=== PATIENT | female | born 1935 | race African-American/Black ===

== ENCOUNTER 2021-01-31 15:25 | Emergency (ER) | payer OTHER ==
[~2021-01-31] VITALS: Ht 162.6 cm; Wt 70.0 kg
[2021-01-31] MEDS ORDERED: DEXT 10% WATER 1,000 ML IV ONE (17:30)
[2021-01-31] MEDS ORDERED: DEXTROSE 50% WATER 50ML SYRINGE IV ONE (17:30)
[2021-01-31 18:52] LABS: CHLORIDE 99 mEq/L (98-107)
[2021-01-31 18:55] LABS: HEMATOCRIT. 30.9 % (36.0-48.0); HEMOGLOBIN. 9.7 g/dL (12.0-16.0); MEAN CORPUSCULAR HEMOGLOBIN 24.6 pg (28.0-32.0); MEAN CORPUSCULAR VOLUME 78.5 fL (81.0-99.0); MEAN PLATELET VOLUME 8.8 fl (7.4-10.4); PLATELET 266 x1000/uL (130-400); RED BLOOD CELL COUNT 3.93 mill/uL (4.2-5.4); RED CELL DISTRIBUTION WIDTH 16.4 % (11.6-14.6)
[2021-01-31 19:29] LABS: PLATELET ESTIMATE NORMAL
[2021-01-31] MEDS ORDERED: CEFTRIAXONE 2 G PREMIX 50 ML IV ONE (22:45)
[2021-02-01 00:40] LABS: CLARITY URINE CLEAR (CLEAR); COLOR URINE YELLOW (YELLOW); KETONES URINE NEGATIVE (NEGATIVE); LEUKOCYTE ESTERASE URINE NEGATIVE (NEGATIVE); NITRITE URINE NEGATIVE (NEGATIVE); OCCULT BLOOD URINE NEGATIVE (NEGATIVE); PROTEIN URINE 2+ (NEGATIVE); SPECIFIC GRAVITY URINE 1.017 (1.005-1.030)
[2021-02-01] MEDS ORDERED: AZITHROMYCIN 500 MG TABLET PO ONE (01:15)
[2021-02-01 01:30] VITALS: BP 119/55
== END 2021-02-01 03:15 | disposition short-term general hospital (02) ==
LOC: ER 15:25 → CANBEDREQ 02-01 02:37 → ER 02-01 03:15
DX: E11.649 Type 2 diabetes mellitus with hypoglycemia without coma (principal); G93.49 Other encephalopathy; D72.825 Bandemia; I10 Essential (primary) hypertension; E78.00 Pure hypercholesterolemia, unspecified; Z85.89 Personal history of malignant neoplasm of other organs and systems; Z79.4 Long term (current) use of insulin; Z88.8 Allergy status to other drugs, medicaments and biological substances; Z88.2 Allergy status to sulfonamides; Z88.0 Allergy status to penicillin
CPT/HCPCS: 36415; 70450; 71045; 80048; 81003; 82962; 83605; 83880; 84484; 85025; 93005; 96365; 96366; 96367; 96376; 99291; J0696